=== PATIENT | female | born 1950 | race Caucasian/White ===

== ENCOUNTER 2016-09-22 09:40 | Emergency (ER) | payer MEDICARE, BC ==
[~2016-09-22] VITALS: Ht 157.5 cm; Wt 81.6 kg
[2016-09-22 09:50] VITALS: BP 125/80; PULSE 78; RESP 18; TEMP 98.1; O2SAT 95
[2016-09-22 11:02] VITALS: BP 125/80; PULSE 78; RESP 18; TEMP 98.1; O2SAT 95
[2016-09-22] MEDS ORDERED: METO50TA PO (11:26)
[2016-09-22] MEDS ORDERED: LEVO25TA4 PO (11:26)
[2016-09-22] MEDS ORDERED: MONT10TA4 PO (11:26)
[2016-09-22] MEDS ORDERED: PRAV20TA2 PO (11:26)
[2016-09-22] MEDS ORDERED: FLUT50SP EACH NARE (11:26)
[2016-09-22] MEDS ORDERED: ASPI81CH CHEW (11:26)
[2016-09-22] MEDS ORDERED: CLAR10CA3 PO (11:26)
[2016-09-22] MEDS ORDERED: OMEG100037 PO (11:26)
[2016-09-22] MEDS ORDERED: BENA25TA3 PO (11:27)
--- NOTE | 2016-09-22 12:02 | PD ---
HPI Chief Complaint: Skin Problem Time Seen by Provider: 11:56 Travel History International Travel<30 days: No Contact w/Intl Traveler<30days: No Traveled to known affect area: No History of Present Illness HPI 66-year-old female presents to the emergency Department with complaint of right lower leg pain and swelling 1 month. At the beginning of August she was treated for cellulitis to her right medial ankle area with Keflex. There was no improvement after Keflex and her primary care provider put her on amoxicillin which improved the wound. She traveled from [place] over the past 5 days, by a car, and has had increased swelling and pain to the right lower extremity. She was seen in urgent care yesterday and was given Bactrim and was told that if there was no improvement in her symptoms to follow-up in the emergency room. She has taken 3 doses of Bactrim without improvement in swelling and pain to the right lower extremity. She has history of DVT to her left leg 3 years ago. Was on Coumadin therapy for 6 months afterwards. Denies anticoagulants at this time. Denies shortness of breath, chest pain. Denies fever, chills, nausea, vomiting. Pain is aggravated with palpation and is constant. No known relieving factors. History of hypertension. No known allergies. No other modifying factors or associated signs and symptoms. PFSH Past Medical History Blood Disorders: Yes (polycythemia; IGA deficiency) High Cholesterol: Yes Hypertension: Yes Thyroid Disease: Yes Influenza Vaccination: No ?: Not Past Surgical History Cholecystectomy: Yes Hysterectomy: Yes Social History Alcohol Use: Yes (ocas) Tobacco Use: No Substance Use: No Allergies-Medications (Allergen,Severity, Reaction): Coded Allergies: No Known Allergies (Unverified , 09/22/16) Reported Meds & Prescriptions Reported Meds & Active Scripts Active Reported Benadryl Allergy (Diphenhydramine HCl) 25 Mg Tab 25 Mg PO Q6HR PRN Fish Oil 1000 mg ([place]-3 Fatty Acids) 1 Cap Cap 1 Cap PO DAILY Aspirin 81 Mg Chew 81 Mg CHEW DAILY Levothyroxine (Levothyroxine Sodium) 25 Mcg Tab 25 Mcg PO DAILY Montelukast (Montelukast Sodium) 10 Mg Tab 10 Mg PO HS Pravastatin 20 Mg Tab 20 Mg PO DAILY Metoprolol Tartrate 50 Mg Tab 50 Mg PO DAILY Claritin (Loratadine) 10 Mg Cap 10 Mg PO DAILY Fluticasone Nasal [place] 50 Mcg/Act Naspr 50 Mcg EACH NARE BID 50 mcg/spray Review of Systems Except as stated in HPI: all other systems reviewed are Neg Physical Exam Narrative GENERAL: Well-nourished, well-developed female patient, in no acute distress; afebrile, nontoxic-appearing SKIN: Warm and dry. Right lower ankle area up to mid calf with 1-2+ pitting edema. Right lower extremity is supple and non-tense with 2+ pedal pulses and sensory intact and without erythema. There is an area of erythema to the medial aspect of the right ankle that appears to be scarring; the areas without signs of cellulitis or signs of infection; without warmth to touch. HEAD: Atraumatic. Normocephalic. EYES: Pupils equal and round. No scleral icterus. No injection or drainage. ENT: Mucosa pink and moist. Airway patent. NECK: Trachea midline. CARDIOVASCULAR: Regular rate and rhythm. No murmur appreciated. 2+ pedal pulses. RESPIRATORY: No accessory muscle use. Clear and equal to auscultation bilaterally. GASTROINTESTINAL: Abdomen soft, non-tender, nondistended. Bowel sounds active 4 quadrants. MUSCULOSKELETAL: Right lower extremity supple and non-tense with 2+ pedal pulse and sensory intact without erythema or edema. No reproducible tenderness on palpation to the posterior upper calf. Tenderness on palpation to medial and lateral aspect of the right ankle and lower leg. No obvious deformities. No clubbing. No cyanosis. NEUROLOGICAL: Awake and alert. Oriented 3. No obvious cranial nerve deficits. Motor grossly within normal limits. Normal speech. PSYCHIATRIC: Appropriate mood and affect; insight and judgment normal. Data Data Last Documented VS Vital Signs Date Time Temp Pulse Resp B/P Pulse Ox O2 Delivery O2 Flow Rate FiO2 09/22/16 11:02 98.1 78 18 125/80 95 09/22/16 09:50 Room Air Orders Us Leg Venous Doppler (09/22/16 ) MDM Medical Decision Making Medical Screen Exam Complete: Yes Emergency Medical Condition: Yes Medical Record Reviewed: Yes Differential Diagnosis Superficial thrombosis, DVT, dependent edema, cellulitis Narrative Course 66-year-old female with right lower extremity edema and pain 1 month. She was previously treated for cellulitis to the right medial ankle area with Keflex, amoxicillin, and is currently taking Bactrim. Findings to the area are not consistent with cellulitis or infection. The patient's right lower extremity is supple and non-tense with 2+ pedal pulses and sensory intact without erythema. Patient does have history of DVT and currently had a five-day travel from [place] via car. Dr. Ellis, my attending physician, examined the patient and agreed venous ultrasound to rule out DVT. Right lower extremity venous ultrasound ordered. 1244: Right leg venous ultrasound unremarkable examination and without DVT. Instructed patient to continue Bactrim as prescribed. Patient is medically cleared and stable for discharge. Discussed reasons to return to the emergency department. Instructed patient to follow up with primary care provider. Patient agrees with treatment plan. The patients vital signs are stable and the patient is stable for outpatient follow-up and treatment. Patient discharged home, stable and in no acute distress. Diagnosis Primary Impression: Leg edema, right Referrals: Primary Care Physician Patient Instructions: General Instructions, Leg Edema (ED) Additional Instructions: Tylenol as directed and as needed for pain Continue antibiotics as prescribed by previous provider Elevate extremity periodically to reduce edema and pain Follow-up with primary care provider Return to the emergency department immediately with worsening of symptoms Med/Other Pt SpecificInfo: Prescription(s) given, No Change to Meds, No Meds Exist/No RX given Disposition: 01 DISCHARGE HOME Condition: Stable Rosario Rascon Sep 22, 2016 12:02
--- NOTE | 2016-09-22 12:29 | RADHPO ---
EXAM DATE/TIME: 09/22/2016 12:07 [facility] COMPARISON: No previous studies available for comparison. INDICATIONS : Right leg redness and swelling. MEDICAL HISTORY : Hypertension. Hypercholesterolemia. SURGICAL HISTORY : Cholecystectomy. Hysterectomy. Tonsillectomy. ENCOUNTER: Initial ACUITY: 1 month PAIN SCORE: 8/10 LOCATION: Right leg. TECHNIQUE: Venous ultrasound of the leg was performed from the inguinal ligament to the proximal calf. Real-shadi e, color Doppler and spectral tracing, compression and augmentation techniques were used. FINDINGS: There is normal compressibility of the deep venous system from the inguinal region to the proximal ca lf. No echogenic clot is seen in the lumen of the common femoral, femoral, popliteal, and posterior tibial veins. There is a normal response of the venous system to proximal and distal augmentation an d respiration. CONCLUSION: Normal examination. Long Mckeon MD on September 22, 2016 at 12:27 Board Certified Radiologist. This report was verified electronically.
[2016-09-22 12:55] VITALS: BP 132/84
== END 2016-09-22 12:56 | disposition home or self-care (01) ==
LOC: PHED 09:40 → PHEFT 12:56
DX: R60.0 Localized edema (principal); M79.661 Pain in right lower leg; E78.00 Pure hypercholesterolemia, unspecified; I10 Essential (primary) hypertension; E07.9 Disorder of thyroid, unspecified; Z86.718 Personal history of other venous thrombosis and embolism
CPT/HCPCS: 93971

== ENCOUNTER 2017-09-21 08:00 | Emergency (ER) | payer MEDICARE, BC ==
[~2017-09-21] VITALS: Ht 157.5 cm; Wt 93.0 kg
[~2017-09-21 08:00] MED LIST: ASPI-516 CHEW; BENA25TA3 PO; CLAR10CA3 PO; FLUT50SP EACH NARE; LEVO25TA4 PO; METO50TA PO; MONT10TA4 PO; OMEG100037 PO; PRAV20TA2 PO
[2017-09-21 08:04] VITALS: BP 179/82; PULSE 69; RESP 16; TEMP 97.9; O2SAT 98
[2017-09-21] MEDS ORDERED: DIPH25CA PO (08:18)
[2017-09-21] MEDS ORDERED: CITRTAB7 PO (08:18)
[2017-09-21] MEDS ORDERED: IBUP1TAB5 PO (08:18)
--- NOTE | 2017-09-21 08:20 | PD ---
HPI Chief Complaint: Musculoskeletal Complaint Time Seen by Provider: 08:08 Travel History International Travel<30 days: No Contact w/Intl Traveler<30days: No Traveled to known affect area: No History of Present Illness HPI The patient is a 67-year-old female who presents to the emergency department for back pain after a fall. The patient states that a friend had moved the patient's chair, when she went to sit down, she felt a hard floor, landing on her lower back and buttocks, and striking her head. The patient states there is no loss of consciousness, she has had a mild posterior headache , but denies any change in bowel status. The patient states that the fall occurred on Friday, it is now Friday. She denies taking any anticoagulants. She denies any neck pain. She does complain of lower back pain located over the mid to left lower aspect of the back, worse with movement, slightly alleviated at rest, and located near the area where she had previous kyphoplasty. The patient denies any syncopal symptoms. Symptoms are moderate, exacerbated after falling, slightly alleviated at rest and with ibuprofen. PFSH Past Medical History Arthritis: Yes Blood Disorders: Yes (polycythemia; IGA deficiency) High Cholesterol: Yes Diminished Hearing: No Hypertension: Yes Thyroid Disease: Yes Influenza Vaccination: Yes ?: Not Past Surgical History Cholecystectomy: Yes Hysterectomy: Yes Other Surgery: Yes (kyphoplasty) Social History Alcohol Use: Yes (ocas) Tobacco Use: No Substance Use: No Allergies-Medications (Allergen,Severity, Reaction): Coded Allergies: No Known Allergies (Unverified Adverse Reaction, Unknown, 09/21/17) Reported Meds & Prescriptions Reported Meds & Active Scripts Active Reported Ibuprofen 400 Mg Tab 400 Mg PO Q8H PRN Citracal + D3 Maximum (Calcium Citrate-Vitamin D) 315-250 Mg-Unit Tab 1 Tab PO BID Diphenhydramine (Diphenhydramine HCl) 25 Mg Cap 25 Mg PO HS PRN Aspirin 81 Mg Chew 81 Mg CHEW DAILY Levothyroxine (Levothyroxine Sodium) 25 Mcg Tab 25 Mcg PO DAILY Montelukast (Montelukast Sodium) 10 Mg Tab 10 Mg PO HS Pravastatin 20 Mg Tab 20 Mg PO DAILY Metoprolol Tartrate 50 Mg Tab 50 Mg PO DAILY Claritin (Loratadine) 10 Mg Cap 10 Mg PO DAILY Fluticasone Nasal [place] 50 Mcg/Act Naspr 50 Mcg EACH NARE BID 50 mcg/spray Review of Systems Except as stated in HPI: all other systems reviewed are Neg HENT: Positive: Headaches, No: Neck Pain Cardiovascular: No: Syncope Gastrointestinal: No: Nausea, Vomiting Musculoskeletal: Positive: Pain, No: Weakness Neurologic: Positive: Headache, No: Focal Abnormalities, Change in Mentation, Paresthesia, Sensory Disturbance Physical Exam Narrative GENERAL: Awake, alert, pleasant 67 year-old female who appears her stated age and is in no acute respiratory distress. SKIN: Focused skin assessment warm/dry. HEAD: Atraumatic. Normocephalic. No obvious cephalic hematoma. EYES: Pupils equal and round. 4 mm bilateral. EOMs are intact. ENT: No nasal bleeding or discharge. Mucous membranes pink and moist. NECK: Trachea midline. No JVD. No tenderness of the cervical vertebrae. Patient is able to put her chin to her chest and rotate the neck to left and right without difficulty. MUSCULOSKELETAL: No obvious deformities. No clubbing. No cyanosis. No edema. Patient is able to ambulate. Back: No tenderness over the thoracic vertebra. Mild tenderness of the inferior lumbar vertebrae in the left sacroiliac. NEUROLOGICAL: Awake and alert. No obvious cranial nerve deficits. Motor grossly within normal limits. Normal speech. Nonfocal. Oriented 4. Follows as without difficulty. PSYCHIATRIC: Appropriate mood and affect; insight and judgment normal. Data Data Last Documented VS Vital Signs Date Time Temp Pulse Resp B/P (MAP) Pulse Ox O2 Delivery O2 Flow Rate FiO2 09/21/17 08:04 97.9 69 16 179/82 (114) [address] Lumb Spine W/O Contrast (09/21/17 ) [facility] Medical Decision Making Medical Screen Exam Complete: Yes Emergency Medical Condition: Yes Medical Record Reviewed: Yes Interpretation(s) Last Impressions Lumbar Spine CT 09/21/17 0000 Signed Impressions: Service Date/Time: Thursday, September 21, 2017 08:21 - CONCLUSION: 1. Status post vertebroplasty at L3 with some of the packing material extending into the inferior aspect of the L2-L3 disc and into the right lateral anterior epidural space. This causes a mild impression on the thecal sac. 2. Concave deformity of the superior aspect of L4 with loss of approximately half the original height centrally at the L4 vertebral body. The age of this deformity is not known. 3. Mild disc bulge at the L2-L3 level. 4. Minimal disc bulge at the L4-L5 level. Adan Amador MD Differential Diagnosis Differential diagnosis includes closed head injury, concussion, to cranial hemorrhage, back strain, lumbar vertebral fracture, sacroiliac pain, musculoskeletal pain. Narrative Course The patient's neurologic exam is unremarkable, the fall occurred on Friday, 2 days ago, the patient is neurologically stable with no change of mental status. I doubt significant intracranial hemorrhage. Patient does have a history of previous kyphoplasty has low back pain, therefore, noncontrast CT of the lumbar spine was obtained. CT reveals kyphoplasty and L3 and a fracture of L4 that is indeterminate. I had a discussion with the patient, she states she broke L4 approximately 6-7 years ago. Patient has most of her pain located over the left sacroiliac. She is advised to continue ibuprofen as needed and will be prescribed pain medications. She will be provided a copy of her CT results at discharge and is advised to follow-up with her primary physician. Return if symptoms worsen or progress. Diagnosis Primary Impression: Low back pain Qualified Codes: M54.5 - Low back pain Additional Impression: Closed head injury Qualified Codes: S09.90XA - Unspecified injury of head, initial encounter Patient Instructions: General Instructions Additional Instructions: Please provide a patient a copy of her CT results at discharge. Follow-up with a primary physician. Continue ibuprofen as needed. Pain medications as directed. Ice and/or heat to the affected area. Return if symptoms worsen or progress. Med/Other Pt SpecificInfo: Prescription(s) given Scripts Hydrocodone-Acetaminophen ([place]) 5 Mg-325 Mg Tab 1 TAB PO Q6H Y for PAIN, #15 TAB 0 Refills Prov: Rah Sharma MD 09/21/17 Disposition: 01 DISCHARGE HOME Condition: Stable Rah Sharma MD Sep 21, 2017 08:20
--- NOTE | 2017-09-21 08:52 | RADRPT ---
EXAM DATE/TIME: 09/21/2017 08:21 [facility] COMPARISON: No previous studies available for comparison. INDICATIONS : Fell out of chair three days ago. Back pain. RADIATION DOSE: 40.08 CTDIvol (mGy) MEDICAL HISTORY : Hypercholesterolemia. Hypertension. Polycythemia. IGA deficiency. SURGICAL HISTORY : Cholecystectomy. Hysterectomy.Lumbar kyphoplasty. Orthopedic surgery. ENCOUNTER: Initial ACUITY: 3 days PAIN SCALE: 8/10 LOCATION: lumbar TECHNIQUE: Volumetric scanning of the lumbar spine was performed. Multiplanar reconstructions in the sagittal, coronal and oblique axial planes were performed. Using automated exposure control and adjustment of the mA and/or kV according to patient size, radiation dose was kept as low as reasonably achievable t o obtain optimal diagnostic quality images. DICOM format image data is available electronically for review and comparison. FINDINGS: VERTEBRAE: The patient is status post vertebroplasty of L3. The L3 vertebral body has lost approximately half it s regional height centrally. The vertebroplasty material is seen to extend into the L2-L3 disc level and posteriorly into the anterior epidural space. It extends 3 mm into the anterior epidural space fr om the posterior vertebral body margin causing only a mild impression on the anterior right lateral r ecess region. The patient also has concave deformities of the superior and to a lesser degree the inf erior aspects of L4. The central aspect of the L4 vertebral body has lost approximately half its orig inal height. The age of this deformity is not known. Prior exams are unavailable. ALIGNMENT: No evidence of subluxation. T12-L1: The thecal sac has a normal diameter. No evidence of disc bulge or protrusion. The neural foramina are patent bilaterally. L1-L2: The thecal sac has a normal diameter. No evidence of disc bulge or protrusion. The neural foramina are patent bilaterally. L2-L3: Again noted is a concave deformity of the superior endplate of L3. The posterior superior aspect of t he L2 vertebral body is directed posteriorly causing a mild impression on the anterior thecal sac. Th ere is accompanying mild disc bulge. Again noted is the vertebroplasty material extending into the ri ght lateral anterior epidural space by approximately 3 mm. The neural foramina are patent bilaterally . L3-L4: The thecal sac has a normal diameter. No evidence of disc bulge or protrusion. The neural foramina are patent bilaterally. L4-L5: There is slight disc bulging without significant stenosis. The thecal sac has a normal diameter. The neural foramina are patent bilaterally. L5-S1: The thecal sac has a normal diameter. No evidence of disc bulge or protrusion. The neural foramina are patent bilaterally. CONCLUSION: 1. Status post vertebroplasty at L3 with some of the packing material extending into the inferior asp ect of the L2-L3 disc and into the right lateral anterior epidural space. This causes a mild impressi on on the thecal sac. 2. Concave deformity of the superior aspect of L4 with loss of approximately half the original height centrally at the L4 vertebral body. The age of this deformity is not known. 3. Mild disc bulge at the L2-L3 level. 4. Minimal disc bulge at the L4-L5 level. Adan Amador MD on September 21, 2017 at 8:41 Board Certified Radiologist. This report was verified electronically.
[2017-09-21] MEDS ORDERED: NORC5TAB PO (09:07)
[2017-09-21] MEDS ORDERED: ACETAMINOPHEN/HYDROcodone 325 MG/5 MG TAB PO ONE (09:15)
== END 2017-09-21 09:33 | disposition home or self-care (01) ==
LOC: PHED 08:00
DX: M54.5 Low back pain (principal); S09.90XA Unspecified injury of head, initial encounter; I10 Essential (primary) hypertension; E78.00 Pure hypercholesterolemia, unspecified; M19.90 Unspecified osteoarthritis, unspecified site; D75.1 Secondary polycythemia; D80.2 Selective deficiency of immunoglobulin A [IgA]; W07.XXXA Fall from chair, initial encounter
CPT/HCPCS: 72131; 99284

== ENCOUNTER 2017-09-23 09:39 | Emergency (ER) | payer MEDICARE, BC ==
[~2017-09-23] VITALS: Ht 157.5 cm; Wt 91.0 kg
[~2017-09-23 09:39] MED LIST changes: -BENA25TA3 PO; +CITRTAB7 PO; +DIPH25CA PO; +IBUP1TAB5 PO; +NORC5TAB PO; -OMEG100037 PO
[2017-09-23 09:41] VITALS: BP 169/81; PULSE 71; RESP 16; TEMP 97.7; O2SAT 96
[2017-09-23] MEDS ORDERED: SODIUM CHLORIDE 0.9% FLUSH 10 ML FLUSH IVF PRN (10:00)
[2017-09-23 10:12] LABS: BASOPHIL # 0.1 TH/MM3 (0-0.2); BASOPHIL % 1.4 % (0.0-2.0); EOSINOPHIL # 0.1 TH/MM3 (0-0.4); EOSINOPHIL % 1.2 % (0.0-4.0); HEMOGLOBIN 13.9 GM/DL (11.6-15.3); LYMPH % 19.2 % (9.0-44.0); LYMPHOCYTE # 1.9 TH/MM3 (1.0-4.8); MEAN CELL VOLUME 91.9 FL (80.0-100.0); MEAN CORPUSCULAR HGB CONC 31.5 % (32.0-36.0); MEAN PLATELET VOLUME 8.2 FL (7.0-11.0); MONO % 6.6 % (0.0-8.0); MONOCYTE # 0.6 TH/MM3 (0-0.9); NEUT % 71.6 % (16.0-70.0); PLATELET COUNT 250 TH/MM3 (150-450); RED BLOOD COUNT 4.79 MIL/MM3 (4.00-5.30); RED CELL DISTRIBUTION WIDTH 13.3 % (11.6-17.2); WHITE BLOOD COUNT 9.7 TH/MM3 (4.0-11.0)
[2017-09-23 10:16] VITALS: BP_SYST 133; BP_SYST 152; BP_DIAS 70; BP_DIAS 76; O2SAT 97
--- NOTE | 2017-09-23 10:17 | PD ---
HPI Chief Complaint: Fall Time Seen by Provider: 09:59 Travel History International Travel<30 days: No Contact w/Intl Traveler<30days: No Traveled to known affect area: No History of Present Illness HPI 67-year-old female with history of hypertension, hyperlipidemia presents emergency Department with left anterior rib pain that started at 7 AM. The pain awoke her from sleep when she rolled over in bed twisting her torso. She describes the pain as sharp. The pain is worse with deep inspiration and twisting motion of her torso. She denies shortness of breath, palpitations, diaphoresis, nausea or vomiting. She did have a mechanical fall 09/19 was evaluated 09/21 here in the ER. She reports she did not fall onto the ribs during that injury. Patient reports she had pain similar to this years ago was diagnosed as pleurisy. Symptom severity is moderate. Aggravated by movement and slightly relieved with rest. No previous cardiac history. PFSH Past Medical History Arthritis: Yes Blood Disorders: Yes (polycythemia; IGA deficiency) High Cholesterol: Yes Diminished Hearing: No Hypertension: Yes Thyroid Disease: Yes Tetanus Vaccination: > 5 Years Influenza Vaccination: Yes ?: Not Menopausal: Yes Past Surgical History Cholecystectomy: Yes Hysterectomy: Yes Other Surgery: Yes (kyphoplasty) Social History Alcohol Use: Yes (ocas) Tobacco Use: No Substance Use: No Allergies-Medications (Allergen,Severity, Reaction): Coded Allergies: No Known Allergies (Unverified Adverse Reaction, Unknown, 09/23/17) Reported Meds & Prescriptions Reported Meds & Active Scripts Active [place] (Hydrocodone-Acetaminophen) 5 Mg-325 Mg Tab 1 Tab PO Q6H PRN Reported Ibuprofen 400 Mg Tab 400 Mg PO Q8H PRN Citracal + D3 Maximum (Calcium Citrate-Vitamin D) 315-250 Mg-Unit Tab 1 Tab PO BID Diphenhydramine (Diphenhydramine HCl) 25 Mg Cap 25 Mg PO HS PRN Aspirin 81 Mg Chew 81 Mg CHEW DAILY Levothyroxine (Levothyroxine Sodium) 25 Mcg Tab 25 Mcg PO DAILY Montelukast (Montelukast Sodium) 10 Mg Tab 10 Mg PO HS Pravastatin 20 Mg Tab 20 Mg PO DAILY Metoprolol Tartrate 50 Mg Tab 50 Mg PO DAILY Claritin (Loratadine) 10 Mg Cap 10 Mg PO DAILY Fluticasone Nasal [place] 50 Mcg/Act Naspr 50 Mcg EACH NARE BID 50 mcg/spray Review of Systems Except as stated in HPI: all other systems reviewed are Neg General / Constitutional: No: Fever Eyes: No: Visual changes HENT: No: Headaches Cardiovascular: Positive: Chest Pain or Discomfort Respiratory: No: Shortness of Breath Gastrointestinal: No: Abdominal Pain Genitourinary: No: Dysuria Physical Exam Narrative GENERAL: Alert female. Well appearing. No distress. SKIN: Warm and dry. HEAD: Atraumatic. Normocephalic. EYES: Pupils equal and round. No injection or drainage. ENT: No nasal bleeding or discharge. Mucous membranes pink and moist. NECK: Trachea midline. No JVD. CARDIOVASCULAR: Regular rate and rhythm. Left anterior chest wall below the breast is tender to palpation. No crepitus. No palpable fracture RESPIRATORY: No accessory muscle use. Clear to auscultation. Breath sounds equal bilaterally. GASTROINTESTINAL: Abdomen soft, non-tender, nondistended. Hepatic and splenic margins not palpable. MUSCULOSKELETAL: Extremities without clubbing, cyanosis, or edema. No obvious deformities. NEUROLOGICAL: Awake and alert. Motor grossly within normal limits. Normal speech. PSYCHIATRIC: Appropriate mood and affect; insight and judgment normal. Data Data Last Documented VS Vital Signs Date Time Temp Pulse Resp B/P (MAP) Pulse Ox O2 Delivery O2 Flow Rate FiO2 09/23/17 10:16 133/70 (91) 152/76 (101) 09/23/17 10:16 97 Room Air 09/23/17 09:41 97.7 71 16 Orders Orders Electrocardiogram (09/23/17 09:55) Basic Metabolic Panel (Bmp) (09/23/17 09:55) Ckmb (Isoenzyme) Profile (09/23/17 09:55) Complete Blood Count With Diff (09/23/17 09:55) Prothrombin Time / Inr (Pt) (09/23/17 09:55) Act Partial Throm Time (Ptt) (09/23/17 09:55) Troponin I (09/23/17 09:55) Chest, Single Ap (09/23/17 09:55) Ecg Monitoring (09/23/17 09:55) Bilateral Bp Monitoring (09/23/17 09:55) Iv Access Insert/Monitor (09/23/17 09:55) Oximetry (09/23/17 09:55) Sodium Chloride 0.9% Flush (Ns Flush) (09/23/17 10:00) Labs Laboratory Tests Test 09/23/17 10:05 09/23/17 10:30 White Blood Count 9.7 TH/MM3 Red Blood Count 4.79 MIL/MM3 Hemoglobin 13.9 GM/DL Hematocrit 44.0 % Mean Corpuscular Volume 91.9 FL Mean Corpuscular Hemoglobin 29.0 PG Mean Corpuscular Hemoglobin Concent 31.5 % Red Cell Distribution Width 13.3 % Platelet Count 250 TH/MM3 Mean Platelet Volume 8.2 FL Neutrophils (%) (Auto) 71.6 % Lymphocytes (%) (Auto) 19.2 % Monocytes (%) (Auto) 6.6 % Eosinophils (%) (Auto) 1.2 % Basophils (%) (Auto) 1.4 % Neutrophils # (Auto) 7.0 TH/MM3 Lymphocytes # (Auto) 1.9 TH/MM3 Monocytes # (Auto) 0.6 TH/MM3 Eosinophils # (Auto) 0.1 TH/MM3 Basophils # (Auto) 0.1 TH/MM3 CBC Comment DIFF FINAL Differential Comment Prothrombin Time 10.2 SEC Prothromb Time International Ratio 1.0 RATIO Activated Partial Thromboplast Time 23.6 SEC Blood Urea Nitrogen 13 MG/DL Creatinine 0.80 MG/DL Random Glucose 94 MG/DL Calcium Level 8.6 MG/DL Sodium Level 134 MEQ/L Potassium Level 4.3 MEQ/L Chloride Level 101 MEQ/L Carbon Dioxide Level 22.8 MEQ/L Anion Gap 10 MEQ/L Estimat Glomerular Filtration Rate 72 ML/MIN Total Creatine Kinase 44 U/L Troponin I LESS THAN 0.02 NG/ML MDM Medical Decision Making Medical Screen Exam Complete: Yes Emergency Medical Condition: Yes Interpretation(s) EKG shows sinus rhythm with no ischemic changes. Heart rate 73. Chest x-ray: No acute disease Cardiac enzymes: Negative CBC: Unremarkable BMP: Unremarkable Differential Diagnosis Chest wall contusion, thoracic strain, ACS Narrative Course 67-year-old female here for evaluation of left anterior rib pain that started at 7 AM. The patient is well-appearing. She is in no distress. On exam the pain is reproducible to palpation of the chest wall. Given the patient's age and multiple cardiac risk factors EKG and cardiac enzymes ordered and pending to rule out cardiac cause of chest pain. EKG showed sinus rhythm with no ischemic changes. Cardiac enzymes are negative. All findings were discussed with patient and family at length. She was offered admission to the chest pain center for serial EKGs to rule out that this is cardiac in nature. She refuses stating "I don't believe this is my heart". I agree that this pain is musculoskeletal in nature. Return precautions were discussed at length. Patient verbalizes understanding and agrees to plan Diagnosis Primary Impression: Chest wall pain Referrals: Primary Care Physician Additional Instructions: Ibuprofen 800 mg every 6-8 hours as needed for pain. Takes medication with food. Return to emergency department immediately if he developed chest pain, palpitations, shortness breath Disposition: 01 DISCHARGE HOME Condition: Stable Annika Ayala Sep 23, 2017 10:17
--- NOTE | 2017-09-23 10:25 | RADRPT ---
EXAM DATE/TIME: 09/23/2017 10:09 [place] COMPARISON: No previous studies available for comparison. INDICATIONS : Left lower chest and rib pain since this morning. MEDICAL HISTORY : Hypercholesterolemia. Hypertension. Polycythemia. IGA deficiency. SURGICAL HISTORY : Cholecystectomy. Hysterectomy.Lumbar kyphoplasty. Orthopedic surgery. ENCOUNTER: Initial ACUITY: 1 day PAIN SCORE: 7/10 LOCATION: Left lower chest FINDINGS: The cardiac silhouette is normal in transverse diameter. The lungs are free of acute parenchymal opac ity. No effusions are identified. CONCLUSION: No acute cardiopulmonary disease. Dany Greco MD on September 23, 2017 at 10:22 Board Certified Radiologist. This report was verified electronically.
[2017-09-23 10:41] LABS: CHLORIDE 101 MEQ/L (98-107); SODIUM (NA) 134 MEQ/L (136-145)
[2017-09-23 10:44] LABS: BICARBONATE 22.8 MEQ/L (21.0-32.0); BLOOD UREA NITROGEN 13 MG/DL (7-18); CALCIUM 8.6 MG/DL (8.5-10.1); GLUCOSE,RANDOM 94 MG/DL (74-106)
[2017-09-23 10:45] LABS: PROTHROMBIN TIME - PATIENT 10.2 SEC (9.8-11.6)
[2017-09-23 10:48] LABS: GLOMERULAR FILTRATION RATE 72 ML/MIN (>89)
[2017-09-23 10:52] LABS: TROPONIN I LESS THAN 0.02 NG/ML (0.02-0.05)
[2017-09-23 11:26] VITALS: BP 140/74; PULSE 88; RESP 16; O2SAT 95
[2017-09-23] MEDS ORDERED: KETOROLAC TROMETHAMINE 30 MG/ML (IVP) VIAL IV PUSH ONE (11:30)
--- NOTE | 2017-09-23 16:55 | EKG ---
Date Performed: 09/23/2017 Time Performed: 10:00:57 PTAGE: 67 years EKG: Sinus rhythm NORMAL ECG NO PREVIOUS TRACING DOCTOR: Ayaz Holley Interpretating Date/Time 09/23/2017 16:53:05
== END 2017-09-23 11:44 | disposition home or self-care (01) ==
LOC: PHEFT 09:39
DX: R07.89 Other chest pain (principal); I10 Essential (primary) hypertension
CPT/HCPCS: 71045; 80048; 82550; 84484; 85025; 85610; 85730; 93005; 96374; 99284; J1885

== ENCOUNTER 2017-10-25 08:59 | Emergency (ER) | payer MEDICARE, BC ==
[~2017-10-25] VITALS: Ht 157.5 cm; Wt 92.7 kg
[2017-10-25 09:01] VITALS: BP 166/80; PULSE 74; RESP 16; TEMP 97.7; O2SAT 93
[2017-10-25] MEDS ORDERED: PRIL20TA2 PO (09:24)
[2017-10-25] MEDS ORDERED: PRED50 PO (09:24)
[2017-10-25] MEDS ORDERED: AMOX875T PO (09:24)
[2017-10-25] MEDS ORDERED: TRAM50 PO (09:36)
--- NOTE | 2017-10-25 09:36 | PD ---
HPI Chief Complaint: Musculoskeletal Complaint Time Seen by Provider: 09:16 Travel History International Travel<30 days: No Contact w/Intl Traveler<30days: No Traveled to known affect area: No History of Present Illness HPI A 67-year-old female here with right hip and low back pain 4 days. Denies injury or trauma. She reports the pain as constant which radiates from the right hip region to her right low back and down her buttocks. She was seen in a local urgent care clinic and had negative x-rays of the lumbar spine pelvis and hip. She was prescribed prednisone which has not improved her symptoms. She attempted to alleviate the pain by exercising and walking each day which only made the symptoms worse. She denies fever, incontinence, saddle anesthesia , paresthesia or weakness of the extremities. No abdominal pain. The severity is moderate. Aggravated by movement and slightly relieved with rest. PFSH Past Medical History Arthritis: Yes Blood Disorders: Yes (polycythemia; IGA deficiency) Cardiovascular Problems: Yes (htn on meds) High Cholesterol: Yes Diminished Hearing: No Hypertension: Yes Immunizations Current: Yes Thyroid Disease: Yes ?: Not Menopausal: Yes Past Surgical History Cholecystectomy: Yes Hysterectomy: Yes Other Surgery: Yes (kyphoplasty) Social History Alcohol Use: Yes (ocas) Tobacco Use: No (former) Substance Use: No Allergies-Medications (Allergen,Severity, Reaction): Coded Allergies: No Known Allergies (Unverified Adverse Reaction, Unknown, 10/25/17) Reported Meds & Prescriptions Reported Meds & Active Scripts Active Ultram (Tramadol HCl) 50 Mg Tab 50 Mg PO Q6H PRN Reported Prilosec (Omeprazole Magnesium) 20 Mg Tab 20 Mg PO DAILY Amoxicillin 875 Mg Tab 875 Mg PO BID Prednisone 50 Mg Tab 50 Mg PO DAILY Citracal + D3 Maximum (Calcium Citrate-Vitamin D) 315-250 Mg-Unit Tab 1 Tab PO BID Diphenhydramine (Diphenhydramine HCl) 25 Mg Cap 25 Mg PO HS PRN Aspirin 81 Mg Chew 81 Mg CHEW DAILY Levothyroxine (Levothyroxine Sodium) 25 Mcg Tab 25 Mcg PO DAILY Montelukast (Montelukast Sodium) 10 Mg Tab 10 Mg PO HS Pravastatin 20 Mg Tab 20 Mg PO DAILY Metoprolol Tartrate 50 Mg Tab 50 Mg PO DAILY Claritin (Loratadine) 10 Mg Cap 10 Mg PO DAILY Fluticasone Nasal [place] 50 Mcg/Act Naspr 50 Mcg EACH NARE BID 50 mcg/spray Review of Systems Except as stated in HPI: all other systems reviewed are Neg General / Constitutional: No: Fever Eyes: No: Visual changes HENT: No: Headaches Cardiovascular: No: Chest Pain or Discomfort Respiratory: No: Shortness of Breath Gastrointestinal: No: Abdominal Pain Genitourinary: No: Dysuria Physical Exam Narrative GENERAL: Alert and well-appearing 67-year-old female. No distress. SKIN: Warm and dry. HEAD: Normocephalic. EYES: No injection or drainage. NECK: Supple GASTROINTESTINAL: Abdomen soft, non-tender, nondistended. No rebound or guarding. MUSCULOSKELETAL: No cyanosis, or edema. Pelvis is stable. Right hip nontender to palpation. She is able to flex and externally rotate the hip without difficulty. 2+ dorsal pedis pulse. Normal sensation. Brisk cap refill BACK: + Tenderness Over the right sacroiliac joint. No lumbar spine tenderness. No CVA tenderness. Data Data Last Documented VS Vital Signs Date Time Temp Pulse Resp B/P (MAP) Pulse Ox O2 Delivery O2 Flow Rate FiO2 10/25/17 09:01 97.7 74 16 166/80 (108) 93 MDM Medical Decision Making Medical Screen Exam Complete: Yes Emergency Medical Condition: Yes Differential Diagnosis Sciatica, sacroiliac arthritis, pelvic fracture, hip fracture Narrative Course This is a 67-year-old female here with nontraumatic right hip and low back pain for less than a week. Symptom severity is mild to moderate. She has a history of arthritis. She is ambulatory without difficulty. Normal neurologic exam. She had negative x-rays of the lumbar spine/pelvis/right hip done at a local urgent care clinic. I do not suspect hip fracture from her exam. She is able to flex and externally rotate the hip without difficulty. Her pain is localized over the right sacroiliac joint. She will be treated with short dose of pain medication and instructed to limit her physical activity until pain is resolved. Diagnosis Primary Impression: Sacroiliac pain Referrals: Ashok Edmondson MD Scripts Tramadol (Ultram) 50 Mg Tab 50 MG PO Q6H Y for PAIN, #14 TAB 0 Refills Prov: Annika Ayala LEAD RECREATION ASSISTANT 10/25/17 Disposition: 01 DISCHARGE HOME Condition: Stable Annika Ayala Oct 25, 2017 09:36
== END 2017-10-25 09:48 | disposition home or self-care (01) ==
LOC: PHED 08:59
DX: M46.1 Sacroiliitis, not elsewhere classified (principal); M19.90 Unspecified osteoarthritis, unspecified site; I10 Essential (primary) hypertension; D75.1 Secondary polycythemia; E07.9 Disorder of thyroid, unspecified
CPT/HCPCS: 99283